=== PATIENT | female | born 1930 | race Caucasian/White ===

== ENCOUNTER 2019-07-18 04:17 | Observation (INO) | payer MEDICARE, BC ==
[~2019-07-18] VITALS: Ht 157.5 cm; Wt 69.0 kg
[~2019-07-18 04:17] MED LIST: ATOR40TA PO; BETA1TAB20 PO; CLOP75TA15 PO; COU5T PO; DILTIAZEM PO; DOCU-28 PO; FURO40TA4 PO; HYDR-3972 PO; LEVO100T PO; METOPROL PO; POTA20TA19 PO; SPIR25TA5 PO
[2019-07-18 04:40] LABS: BASOPHILS # (AUTO) 0.1 X10'3 (0-0.2); BASOPHILS % (AUTO) 1.4 % (0-1); EOSINOPHILS # (AUTO) 0.2 X10'3 (0-0.9); EOSINOPHILS % (AUTO) 1.8 % (0-6); HEMATOCRIT 37.9 % (35.0-45.0); HEMOGLOBIN 12.9 g/dl (12.0-16.0); LYMPHOCYTES # (AUTO) 1.6 X10'3 (1.1-4.8); LYMPHOCYTES % (AUTO) 17.9 % (21-51); MEAN CORPUSCULAR HEMOGLOBIN 31.1 PG (27.0-31.0); MEAN CORPUSCULAR VOLUME 91.3 FL (78-98); MEAN PLATELET VOLUME 7.7 FL (7.4-10.4); MONOCYTES # (AUTO) 0.8 X10'3 (0-0.9); MONOCYTES % (AUTO) 9.1 % (2-12); NEUTROPHILS # (AUTO) 6.3 X10'3 (1.8-7.7); NEUTROPHILS % (AUTO) 69.8 % (42-75); PLATELET COUNT 287 X10'3 (140-440); RED BLOOD COUNT 4.15 X10'6 (4.20-5.60); RED CELL DISTRIBUTION WIDTH 14.8 % (11.5-14.5)
[2019-07-18 04:56] LABS: ALANINE AMINOTRANSFERASE 34 U/L (12-78); ALBUMIN 3.6 G/DL (3.4-5.0); ALBUMIN/GLOBULIN RATIO 1.2 (1.1-1.5); ALKALINE PHOSPHATASE 102 IU/L (46-116); ANION GAP 8 (8-16); ASPARTATE AMINO TRANSFERASE 25 U/L (10-37); BILIRUBIN,TOTAL 0.5 MG/DL (0.1-1.0); BLOOD UREA NITROGEN 17 MG/DL (7-18); BUN/CREATININE RATIO 18.3 (6.6-38.0); CALCIUM 8.8 MG/DL (8.5-10.1); CHLORIDE 102 MMOL/L (99-107); CREATININE 0.93 MG/DL (0.40-0.90); GLUCOSE 113 MG/DL (70-104); POTASSIUM 3.7 MMOL/L (3.5-5.1); SODIUM 137 MMOL/L (135-145); TOTAL PROTEIN 6.5 G/DL (6.4-8.2); eGFR 57 ML/MIN
[2019-07-18] MEDS ORDERED: nitroGLYCERIN 1gm ointment UD TP ONE (05:00)
[2019-07-18] MEDS ORDERED: fentaNYL/PF 50MCG/1 ML 2ML syringe IV ONE (05:30)
[2019-07-18] MEDS ORDERED: iohexol 350MG/ML 100ml bottle IV ONE (05:40)
[2019-07-18] MEDS ORDERED: METO-395 PO (05:47)
[2019-07-18] MEDS ORDERED: FURO40TA4 PO (05:47)
[2019-07-18] MEDS ORDERED: POTA20TA19 PO (05:47)
[2019-07-18] MEDS ORDERED: ATOR-2 PO (05:47)
[2019-07-18] MEDS ORDERED: DILT240C92 PO (05:47)
[2019-07-18] MEDS ORDERED: VIT1CAPS46 PO (05:47)
[2019-07-18] MEDS ORDERED: WARF2.5T82 PO (05:47)
[2019-07-18] MEDS ORDERED: LEVO137T2 PO (05:47)
--- NOTE | 2019-07-18 05:50 | NUR ---
Pt. transported by tech to CT scan at this time.
--- NOTE | 2019-07-18 06:01 | NUR ---
Pt. returns to ED room 16 at this time.
[2019-07-18] MEDS ORDERED: potassium Cl 20 mEq SR tablet PO PRN ×2 (06:40)
[2019-07-18] MEDS ORDERED: magnesium 2GM in 50ml NS 50 ML IV PRN (06:40)
[2019-07-18] MEDS ORDERED: magnesium Cl slow-release 64mg tablet PO PRN (06:40)
[2019-07-18] MEDS ORDERED: magnesium 4gm in 100ml NS 100 ML IV PRN (06:40)
[2019-07-18] MEDS ORDERED: potassium CL 10mEq/100ml bag 100 ML IV PRN ×2 (06:40)
[2019-07-18] MEDS ORDERED: HYDROcodone/acetaminophen 5mg/325mg tablet PO PRN (06:40)
[2019-07-18] MEDS ORDERED: ondansetron/PF 4mg/2ml inj IV PRN (06:40)
[2019-07-18] MEDS: K and/or MAG REPLACEMENT MC SCH ×2 (08:00→20:00)
[2019-07-18] MEDS ORDERED: LIDO700A47 TOP (08:15)
[2019-07-18] MEDS ORDERED: ALEN70TA13 PO (08:15)
[2019-07-18] MEDS: morphine 2 MG/ML inj. syringe IV PRN ×3 (09:36→21:49)
--- NOTE | 2019-07-18 10:03 | NUR ---
PAGER ID: [phone] MESSAGE: [phone][facility] Columb[facility] 1979
[2019-07-18] MEDS: HYDROcodone/acetaminophen 10/325mg tab PO PRN ×3 (10:30→19:25)
[2019-07-18 10:55] LABS: MAGNESIUM 1.8 MG/DL (1.5-2.4)
[2019-07-18 11:00] VITALS: BP 129/73
[2019-07-18] MEDS ORDERED: non-formulary drug (Alendronate Sodium 1 TAB) PO SCH (11:25)
[2019-07-18] MEDS ORDERED: diltiazem CD 120mg capsule (once-daily) PO ONE (11:25)
[2019-07-18] MEDS: metoprolol succinate 25mg (24-HOUR) SR. Tablet PO SCH (13:46)
--- NOTE | 2019-07-18 14:43 | NUR ---
received report from Glendy PICKARD.
--- NOTE | 2019-07-18 15:00 | NUR ---
Problems reprioritized. Patient report given, questions answered & plan of care reviewed with Med/aircraft systems repairer.
[2019-07-18 18:45] VITALS: BP 113/70
--- NOTE | 2019-07-18 18:48 | NUR ---
Problems reprioritized. Patient report given, questions answered & plan of care reviewed with Noam PICKARD.
[2019-07-18] MEDS ORDERED: non-formulary drug (Vit C/E/Zn/Coppr/Lutein/Zeaxan (Preservision Areds 2 Softgel) 1 CAP) PO SCH (20:00)
[2019-07-18] MEDS ORDERED: warfarin 2.5mg tablet PO SCH (21:00)
[2019-07-19] VITALS: BP 137/64
[2019-07-19] MEDS: morphine 2 MG/ML inj. syringe IV PRN ×2 (03:27→11:37)
[2019-07-19 05:44] LABS: ALBUMIN 3.4 G/DL (3.4-5.0); ANION GAP 10 (8-16); BLOOD UREA NITROGEN 16 MG/DL (7-18); BUN/CREATININE RATIO 20.8 (6.6-38.0); CALCIUM 8.9 MG/DL (8.5-10.1); CHLORIDE 101 MMOL/L (99-107); CREATININE 0.77 MG/DL (0.40-0.90); GLUCOSE 117 MG/DL (70-104); MAGNESIUM 1.8 MG/DL (1.5-2.4); POTASSIUM 3.5 MMOL/L (3.5-5.1); SODIUM 137 MMOL/L (135-145); TOTAL CARBON DIOXIDE 26.1 MMOL/L (24-32); eGFR 71 ML/MIN
[2019-07-19 06:07] LABS: BASOPHILS # (AUTO) 0.1 X10'3 (0-0.2); BASOPHILS % (AUTO) 0.5 % (0-1); EOSINOPHILS # (AUTO) 0.1 X10'3 (0-0.9); HEMATOCRIT 38.5 % (35.0-45.0); LYMPHOCYTES # (AUTO) 0.9 X10'3 (1.1-4.8); LYMPHOCYTES % (AUTO) 8.5 % (21-51); MEAN CORPUSCULAR HEMOGLOBIN 31.1 PG (27.0-31.0); MEAN CORPUSCULAR HGB CONC 33.8 g/dL (33.0-36.5); MEAN CORPUSCULAR VOLUME 92.1 FL (78-98); MEAN PLATELET VOLUME 8.1 FL (7.4-10.4); MONOCYTES # (AUTO) 1.2 X10'3 (0-0.9); MONOCYTES % (AUTO) 11.5 % (2-12); NEUTROPHILS % (AUTO) 78.5 % (42-75); PLATELET COUNT 266 X10'3 (140-440); RED BLOOD COUNT 4.18 X10'6 (4.20-5.60); RED CELL DISTRIBUTION WIDTH 15.2 % (11.5-14.5); WHITE BLOOD COUNT 10.2 X10'3 (4.5-11.0)
--- NOTE | 2019-07-19 06:41 | NUR ---
Report given to NEERAJ Caldwell
--- NOTE | 2019-07-19 06:54 | NUR ---
Patient in room JASON 348. I have received report from NEERAJ Santacruz and had the opportunity to ask questions and assume patient care.
[2019-07-19 07:00] VITALS: BP 137/52
[2019-07-19] MEDS ORDERED: levoTHYROXINE 112mcg tablet PO SCH (07:00)
[2019-07-19] MEDS ORDERED: levoTHYROXINE 25mcg tablet PO SCH (07:00)
[2019-07-19] MEDS ORDERED: diltiazem CD 120mg capsule (once-daily) PO SCH (08:00)
[2019-07-19] MEDS ORDERED: atorvastatin 20mg tablet PO SCH (08:00)
[2019-07-19] MEDS ORDERED: furosemide 40mg tablet PO SCH (08:00)
[2019-07-19] MEDS ORDERED: potassium Cl 20 mEq SR tablet PO SCH (08:00)
[2019-07-19] MEDS: K and/or MAG REPLACEMENT MC SCH (08:00)
[2019-07-19] MEDS: metoprolol succinate 25mg (24-HOUR) SR. Tablet PO SCH (08:58)
[2019-07-19] MEDS: HYDROcodone/acetaminophen 10/325mg tab PO PRN ×2 (08:59→14:22)
[2019-07-19] MEDS ORDERED: FLU VACC QS 2019-20 (6 MOS UP) 60 MCG/0.5 ML VIAL IMVAC ONE (10:00)
[2019-07-19] MEDS ORDERED: pneumococcal 23-VAL P-sac vacc 25 mcg/0.5ml vial IMVAC ONE (10:00)
[2019-07-19 11:00] VITALS: BP 142/64
[2019-07-19] MEDS ORDERED: HYDR-4353 PO (14:32)
--- NOTE | 2019-07-19 17:02 | NUR ---
TIED SEVERAL TIMES TO SCAN VACCINE TO ADMIN TO PATIENT. IT WOULD NOT SCAN. PT DID NOT WANT TO WAIT FOR PHARMACY TO TRY TO FIX IT. THEY DECIDED TO REFUSE THE VACCINE. Addendum: 07/19/19 at 1704 by Traci Smiley RN TRIED NOT TIED.
== END 2019-07-19 17:04 | disposition home health service (06) ==
LOC: ER 04:18 → ED HOLD 08:41 → MED 3N 09:05 → SUR 3N 14:50
PROVIDERS: ADMIT Family Medicine; ATTEND Family Medicine
DX: R07.89 Other chest pain (principal); M79.602 Pain in left arm; I11.0 Hypertensive heart disease with heart failure; I50.9 Heart failure, unspecified; I48.91 Unspecified atrial fibrillation; E11.9 Type 2 diabetes mellitus without complications; M81.0 Age-related osteoporosis without current pathological fracture; E03.9 Hypothyroidism, unspecified; I25.10 Atherosclerotic heart disease of native coronary artery without angina pectoris; E78.5 Hyperlipidemia, unspecified; G89.29 Other chronic pain; M54.9 Dorsalgia, unspecified; Z95.0 Presence of cardiac pacemaker; Z95.5 Presence of coronary angioplasty implant and graft; Z90.49 Acquired absence of other specified parts of digestive tract; Z90.710 Acquired absence of both cervix and uterus; Z98.41 Cataract extraction status, right eye; Z98.42 Cataract extraction status, left eye; Z90.89 Acquired absence of other organs; Z79.01 Long term (current) use of anticoagulants; Z79.02 Long term (current) use of antithrombotics/antiplatelets; Z79.899 Other long term (current) drug therapy
CPT/HCPCS: 36415; 71045; 71275; 80048; 80053; 83735; 83880; 84484; 85025; 85610; 87081; 90732; 93005; 93306; 96374; 96375; 96376; 97112; 97116; 97161; 97530; 99284; G0378; J2270; J3010; Q9967; Q2037

== ENCOUNTER 2021-09-30 12:19 | Inpatient (IN) | payer MEDICARE, BC ==
[~2021-09-30] VITALS: Ht 152.4 cm; Wt 54.0 kg
[~2021-09-30 12:19] MED LIST changes: +ALEN70TA80 PO; +ATOR-2 PO; -ATOR40TA PO; -BETA1TAB20 PO; -CLOP75TA15 PO; -COU5T PO; +DILT240C92 PO; -DILTIAZEM PO; -DOCU-28 PO; -HYDR-3972 PO; -LEVO100T PO; +LEVO137T2 PO; +LIDO700A47 TOP; +METO-395 PO; -METOPROL PO; +POTA-207 PO; -POTA20TA19 PO; -SPIR25TA5 PO; +VIT1CAPS46 PO; +WARF2.5T82 PO
[2021-09-30 12:43] LABS: BASOPHILS % (AUTO) 0.7 % (0-1); EOSINOPHILS % (AUTO) 0 % (0-6); HEMOGLOBIN 13.9 g/dl (12.0-16.0); LYMPHOCYTES # (AUTO) 0.6 X10'3 (1.1-4.8); LYMPHOCYTES % (AUTO) 8.3 % (21-51); MEAN CORPUSCULAR HEMOGLOBIN 28.8 PG (27.0-31.0); MEAN CORPUSCULAR HGB CONC 32.4 g/dL (33.0-36.5); MEAN CORPUSCULAR VOLUME 88.9 FL (78-98); MEAN PLATELET VOLUME 8.3 FL (7.4-10.4); MONOCYTES # (AUTO) 0.7 X10'3 (0-0.9); MONOCYTES % (AUTO) 9.6 % (2-12); NEUTROPHILS % (AUTO) 81.4 % (42-75); PLATELET COUNT 312 X10'3 (140-440); RED BLOOD COUNT 4.84 X10'6 (4.20-5.60); RED CELL DISTRIBUTION WIDTH 14.9 % (11.5-14.5); WHITE BLOOD COUNT 7.4 X10'3 (4.5-11.0)
[2021-09-30 13:00] LABS: ALANINE AMINOTRANSFERASE 55 U/L (12-78); ALBUMIN/GLOBULIN RATIO 1.2 (1.1-1.5); ALKALINE PHOSPHATASE 121 IU/L (46-116); ANION GAP 15 (8-16); ASPARTATE AMINO TRANSFERASE 60 U/L (10-37); BILIRUBIN,TOTAL 1.1 MG/DL (0.1-1.0); BLOOD UREA NITROGEN 40 MG/DL (7-18); BUN/CREATININE RATIO 34.2 (6.6-38.0); CHLORIDE 101 MMOL/L (99-107); CREATININE 1.17 MG/DL (0.40-0.90); GLUCOSE 132 MG/DL (70-104); SODIUM 135 MMOL/L (135-145); TOTAL PROTEIN 7.4 G/DL (6.4-8.2); eGFR 44 ML/MIN
--- NOTE | 2021-09-30 13:22 | NUR ---
patient difficult to obtain saturation due to cool fingertips.started pt on a non rebreather 15L,paged RT. purple earlobes, aware.
--- NOTE | 2021-09-30 13:26 | NUR ---
rt at bedside.
[2021-09-30 13:37] LABS: ABG BASE EXCESS -5.8 mmol/L (-2.0-2.0); ABG OXYGEN SATURATION 99.8 % (94-97); ABG PCO2 (T) 22.4 mmHg (32.0-45.0); ALLEN'S TEST POSITIVE; FLOW 20 L/min; FMetHb 0.2 % (0.0-1.5); FO2Hb 98.6 % (94-97); PATIENT TEMPERATURE 36.2; TOTAL HEMOGLOBIN 14.4 G/dl (12.0-16.0)
[2021-09-30] MEDS ORDERED: aspirin 325mg tablet PO ONE (14:15)
[2021-09-30] MEDS ORDERED: diltiazem 5mg/ml 5ml inj. IV ONE (14:15)
[2021-09-30] MEDS ORDERED: ondansetron/PF 4mg/2ml inj IV ONE (14:15)
[2021-09-30] MEDS ORDERED: mag hydrox/Alum hydrox/simeth 30ml oral suspension PO PRN (14:25)
[2021-09-30] MEDS ORDERED: magnesium hydroxide 30ml (MOM) UD suspension PO PRN (14:25)
[2021-09-30] MEDS ORDERED: acetaminophen 325mg tablet PO PRN (14:25)
[2021-09-30] MEDS ORDERED: magnesium 2GM in 50ml NS 50 ML IV PRN (14:25)
[2021-09-30] MEDS ORDERED: morphine 2 MG/ML inj. syringe IV PRN ×2 (14:25)
[2021-09-30] MEDS ORDERED: potassium Cl 20 mEq SR tablet PO PRN (14:25)
[2021-09-30] MEDS ORDERED: magnesium 4gm in 100ml NS 100 ML IV PRN (14:25)
[2021-09-30] MEDS ORDERED: potassium CL 10mEq/100ml bag 100 ML IV PRN (14:25)
[2021-09-30] MEDS ORDERED: ondansetron/PF 4mg/2ml inj IV PRN (14:25)
[2021-09-30] MEDS ORDERED: magnesium Cl slow-release 64mg tablet PO PRN (14:25)
[2021-09-30] MEDS ORDERED: albuterol 2.5 MG/3 ML nebule CONTNEB PRN (15:00)
[2021-09-30] MEDS ORDERED: dextrose 50%-water 50ml dispensing syringe IV ONE (15:00)
[2021-09-30] MEDS ORDERED: albuterol 2.5 MG/3 ML nebule NEB ONE (15:00)
[2021-09-30] MEDS ORDERED: sodium polystyrene sulfonate 15gm/60ml oral suspension PO ONE (15:00)
[2021-09-30] MEDS ORDERED: insulin regular, human U-100 3ml vial - multi-dose IV ONE (15:00)
--- NOTE | 2021-09-30 15:00 | NUR ---
dr. shayy melara aware about patient's k 6.0
[2021-09-30] MEDS ORDERED: FLUT1BLS4 INH (15:10)
[2021-09-30] MEDS ORDERED: HYDR-3973 PO (15:10)
[2021-09-30] MEDS ORDERED: ALBU2.5V10 NEB (15:10)
[2021-09-30] MEDS ORDERED: ALBU17AE26 PO (15:10)
[2021-09-30] MEDS ORDERED: EZET10TA48 PO (15:10)
[2021-09-30 15:17] LABS: MAGNESIUM 2.2 MG/DL (1.5-2.4)
[2021-09-30 15:33] LABS: HEMOGLOBIN A1C 6.2 % (4.5-6.2)
[2021-09-30 17:35] VITALS: BP 120/76
[2021-09-30 18:00] VITALS: BP 155/91
[2021-09-30] MEDS: K and/or MAG REPLACEMENT MC SCH (20:00)
[2021-09-30] MEDS: docusate sod 100mg capsule PO SCH (20:52)
[2021-09-30] MEDS: HYDROcodone/acetaminophen 5mg/325mg tablet PO PRN (20:52)
[2021-09-30] MEDS: atorvastatin 20mg tablet PO SCH (20:56)
--- NOTE | 2021-09-30 21:12 | NUR ---
PAGER ID: [phone] MESSAGE: Mady arteagas : Katherine Metz in 4827h heart rate in 150 Cardizem iv 5mg/ml given 6hours ago in ER
--- NOTE | 2021-09-30 21:30 | NUR ---
New order for Cardizem drip for heart rate of 145 , running at 2.5ml/hour
[2021-09-30 22:00] VITALS: BP 130/71
[2021-09-30] MEDS: diltiazem-NS 100mg/100ml 100 ML IV SCH (22:09)
[2021-10-01 02:00] VITALS: BP 126/69
[2021-10-01 06:00] VITALS: BP 138/75
--- NOTE | 2021-10-01 06:15 | NUR ---
Problems reprioritized. Patient report given, questions answered & plan of care reviewed with Lisandra PICKARD .
[2021-10-01 07:06] LABS: BASOPHILS # (AUTO) 0.1 X10'3 (0-0.2); BASOPHILS % (AUTO) 0.7 % (0-1); EOSINOPHILS % (AUTO) 0.2 % (0-6); HEMATOCRIT 36.9 % (35.0-45.0); HEMOGLOBIN 12.2 g/dl (12.0-16.0); LYMPHOCYTES % (AUTO) 11.4 % (21-51); MEAN CORPUSCULAR HEMOGLOBIN 28.8 PG (27.0-31.0); MEAN CORPUSCULAR VOLUME 87.4 FL (78-98); MEAN PLATELET VOLUME 8.4 FL (7.4-10.4); MONOCYTES % (AUTO) 11.9 % (2-12); NEUTROPHILS # (AUTO) 6.5 X10'3 (1.8-7.7); NEUTROPHILS % (AUTO) 75.8 % (42-75); PLATELET COUNT 294 X10'3 (140-440); RED BLOOD COUNT 4.22 X10'6 (4.20-5.60); WHITE BLOOD COUNT 8.5 X10'3 (4.5-11.0)
[2021-10-01 07:22] LABS: ALANINE AMINOTRANSFERASE 50 U/L (12-78); ALBUMIN 3.5 G/DL (3.4-5.0); ALBUMIN/GLOBULIN RATIO 1.3 (1.1-1.5); ALKALINE PHOSPHATASE 100 IU/L (46-116); ANION GAP 12 (8-16); ASPARTATE AMINO TRANSFERASE 49 U/L (10-37); BILIRUBIN,TOTAL 1.2 MG/DL (0.1-1.0); BLOOD UREA NITROGEN 44 MG/DL (7-18); BUN/CREATININE RATIO 37.3 (6.6-38.0); CALCIUM 9.3 MG/DL (8.5-10.1); CHLORIDE 99 MMOL/L (99-107); CHOL/HDL RATIO 2.3 (0.00-4.99); CHOLESTEROL 122 MG/DL (0-200); CREATININE 1.18 MG/DL (0.40-0.90); GLUCOSE 96 MG/DL (70-104); HDL CHOLESTEROL 53 MG/DL (35-60); LDL CHOLESTEROL 60 MG/DL (50-100); MAGNESIUM 2.2 MG/DL (1.5-2.4); POTASSIUM 4.6 MMOL/L (3.5-5.1); SODIUM 132 MMOL/L (135-145); TOTAL CARBON DIOXIDE 20.8 MMOL/L (24-32); TOTAL PROTEIN 6.3 G/DL (6.4-8.2); TRIGLYCERIDES 65 MG/DL (20-135); eGFR 43 ML/MIN
--- NOTE | 2021-10-01 07:36 | NUR ---
CRITICAL LAB VALUE RECEIVED, MESSAGE TO Andrea BATISTA. PATIENT IN ROOM 3026 B PHILIP BARR PT/INR 52.8/5.7 LAST ONE 09/30 WAS 41.8/4.4. AWAITING ASSOCIATE PROFESSOR OF LITERATURE BACK.
[2021-10-01] MEDS ORDERED: diltiazem CD 120mg capsule (once-daily) PO SCH (08:00)
[2021-10-01] MEDS: K and/or MAG REPLACEMENT MC SCH ×2 (08:00→20:00)
[2021-10-01] MEDS: atorvastatin 20mg tablet PO SCH (08:50)
[2021-10-01] MEDS: metoprolol succinate 25mg (24-HOUR) SR. Tablet PO SCH (08:51)
[2021-10-01] MEDS: furosemide 40mg/4ml inj IV SCH (08:51)
[2021-10-01] MEDS: levoTHYROXINE 25mcg tablet PO SCH (08:51)
[2021-10-01] MEDS: levoTHYROXINE 112mcg tablet PO SCH (08:51)
[2021-10-01] MEDS: docusate sod 100mg capsule PO SCH ×2 (08:52→20:52)
[2021-10-01 11:00] VITALS: BP 142/91
--- NOTE | 2021-10-01 11:04 | NUR ---
Age screen: Per malnutrition risk screen with RN pt denies wt loss or decreased appetite. Pending documentation of PO intake on heart healthy diet. Recommend liberalizing to regular diet in view of geriatric age, lipid panel WNL, and low serum Na (132 MMOL/L). Current wt is appropriate for age though not scaled. Pt with no documented edema or wounds. Will continue to follow and make recommendations as appropriate pending trends in PO intake. Addendum: 10/01/21 at [address] Amended: Links added.
[2021-10-01 15:00] VITALS: BP 122/74
[2021-10-01 18:00] VITALS: BP 115/62
[2021-10-01] MEDS ORDERED: PERFLUTREN PROTEIN-A MICROSPHR (Optison) 0.22 MG/ML 3ML VIAL IV PRN (20:30)
[2021-10-01] MEDS: HYDROcodone/acetaminophen 5mg/325mg tablet PO PRN (20:52)
[2021-10-01 22:00] VITALS: BP 142/88
[2021-10-02 02:00] VITALS: BP 140/80
[2021-10-02] MEDS: diltiazem-NS 100mg/100ml 100 ML IV SCH (03:28)
[2021-10-02 06:00] VITALS: BP 163/97
[2021-10-02 06:24] LABS: BASOPHILS # (AUTO) 0.1 X10'3 (0-0.2); BASOPHILS % (AUTO) 0.7 % (0-1); EOSINOPHILS # (AUTO) 0.1 X10'3 (0-0.9); EOSINOPHILS % (AUTO) 0.8 % (0-6); HEMATOCRIT 35.2 % (35.0-45.0); HEMOGLOBIN 11.7 g/dl (12.0-16.0); LYMPHOCYTES # (AUTO) 0.9 X10'3 (1.1-4.8); LYMPHOCYTES % (AUTO) 9.6 % (21-51); MEAN CORPUSCULAR HEMOGLOBIN 28.7 PG (27.0-31.0); MEAN CORPUSCULAR HGB CONC 33.2 g/dL (33.0-36.5); MEAN CORPUSCULAR VOLUME 86.5 FL (78-98); MEAN PLATELET VOLUME 8.1 FL (7.4-10.4); MONOCYTES # (AUTO) 1.1 X10'3 (0-0.9); MONOCYTES % (AUTO) 12.2 % (2-12); NEUTROPHILS % (AUTO) 76.7 % (42-75); PLATELET COUNT 258 X10'3 (140-440); RED BLOOD COUNT 4.06 X10'6 (4.20-5.60); RED CELL DISTRIBUTION WIDTH 14.8 % (11.5-14.5); WHITE BLOOD COUNT 9.1 X10'3 (4.5-11.0)
--- NOTE | 2021-10-02 06:44 | NUR ---
Problems reprioritized. Patient report given, questions answered & plan of care reviewed with Krunal Go .
[2021-10-02] MEDS: K and/or MAG REPLACEMENT MC SCH ×2 (08:00→20:00)
[2021-10-02] MEDS: docusate sod 100mg capsule PO SCH ×2 (08:00→20:06)
[2021-10-02 08:04] LABS: ALANINE AMINOTRANSFERASE 44 U/L (12-78); ALBUMIN 3.2 G/DL (3.4-5.0); ALBUMIN/GLOBULIN RATIO 1.1 (1.1-1.5); ALKALINE PHOSPHATASE 94 IU/L (46-116); ASPARTATE AMINO TRANSFERASE 37 U/L (10-37); BILIRUBIN,TOTAL 0.9 MG/DL (0.1-1.0); BLOOD UREA NITROGEN 40 MG/DL (7-18); BUN/CREATININE RATIO 41.7 (6.6-38.0); CALCIUM 8.9 MG/DL (8.5-10.1); CREATININE 0.96 MG/DL (0.40-0.90); GLUCOSE 102 MG/DL (70-104); MAGNESIUM 2.2 MG/DL (1.5-2.4); TOTAL CARBON DIOXIDE 23.9 MMOL/L (24-32); TOTAL PROTEIN 6.1 G/DL (6.4-8.2); eGFR 55 ML/MIN
[2021-10-02] MEDS: levoTHYROXINE 25mcg tablet PO SCH (08:42)
[2021-10-02] MEDS: levoTHYROXINE 112mcg tablet PO SCH (08:44)
[2021-10-02] MEDS: atorvastatin 20mg tablet PO SCH (08:44)
[2021-10-02] MEDS: furosemide 40mg/4ml inj IV SCH (08:45)
[2021-10-02] MEDS: metoprolol succinate 25mg (24-HOUR) SR. Tablet PO SCH (08:45)
[2021-10-02 11:00] VITALS: BP 119/81
[2021-10-02 13:21] LABS: POTASSIUM 3.6 MMOL/L (3.3-5.1)
[2021-10-02 15:00] VITALS: BP 128/84
[2021-10-02] MEDS: HYDROcodone/acetaminophen 5mg/325mg tablet PO PRN ×2 (15:30→20:06)
[2021-10-02 18:00] VITALS: BP 121/71
[2021-10-02 22:00] VITALS: BP 111/62
[2021-10-03 02:00] VITALS: BP 120/71
[2021-10-03 06:00] VITALS: BP 119/63
[2021-10-03 06:29] LABS: BASOPHILS % (AUTO) 0.4 % (0-1); EOSINOPHILS # (AUTO) 0.1 X10'3 (0-0.9); EOSINOPHILS % (AUTO) 1.4 % (0-6); HEMATOCRIT 36.7 % (35.0-45.0); HEMOGLOBIN 11.8 g/dl (12.0-16.0); LYMPHOCYTES # (AUTO) 0.9 X10'3 (1.1-4.8); LYMPHOCYTES % (AUTO) 8.9 % (21-51); MEAN CORPUSCULAR VOLUME 87.4 FL (78-98); MEAN PLATELET VOLUME 8.3 FL (7.4-10.4); MONOCYTES # (AUTO) 1.1 X10'3 (0-0.9); MONOCYTES % (AUTO) 11.3 % (2-12); NEUTROPHILS # (AUTO) 7.8 X10'3 (1.8-7.7); PLATELET COUNT 275 X10'3 (140-440); RED CELL DISTRIBUTION WIDTH 15.1 % (11.5-14.5); WHITE BLOOD COUNT 9.9 X10'3 (4.5-11.0)
--- NOTE | 2021-10-03 06:30 | NUR ---
Problems reprioritized. Patient report given, questions answered & plan of care reviewed with Krunal PICKARD .
[2021-10-03 06:39] LABS: ALANINE AMINOTRANSFERASE 40 U/L (12-78); ALBUMIN 3.1 G/DL (3.4-5.0); ALBUMIN/GLOBULIN RATIO 1.1 (1.1-1.5); ALKALINE PHOSPHATASE 101 IU/L (46-116); ANION GAP 8 (8-16); ASPARTATE AMINO TRANSFERASE 31 U/L (10-37); BILIRUBIN,TOTAL 0.9 MG/DL (0.1-1.0); BLOOD UREA NITROGEN 29 MG/DL (7-18); BUN/CREATININE RATIO 34.9 (6.6-38.0); CALCIUM 8.7 MG/DL (8.5-10.1); CHLORIDE 99 MMOL/L (99-107); CREATININE 0.83 MG/DL (0.40-0.90); GLUCOSE 98 MG/DL (70-104); SODIUM 136 MMOL/L (135-145); TOTAL PROTEIN 5.9 G/DL (6.4-8.2); eGFR 65 ML/MIN
[2021-10-03] MEDS: metoprolol succinate 25mg (24-HOUR) SR. Tablet PO SCH (07:07)
[2021-10-03] MEDS: levoTHYROXINE 112mcg tablet PO SCH (07:07)
[2021-10-03] MEDS: levoTHYROXINE 25mcg tablet PO SCH (07:07)
[2021-10-03] MEDS: atorvastatin 20mg tablet PO SCH (07:08)
[2021-10-03] MEDS: furosemide 40mg/4ml inj IV SCH (07:08)
[2021-10-03] MEDS: docusate sod 100mg capsule PO SCH ×2 (07:08→20:51)
[2021-10-03 07:46] LABS: POTASSIUM 2.8 MMOL/L (3.5-5.1)
[2021-10-03] MEDS: potassium Cl 20 mEq SR tablet PO PRN ×2 (08:34→13:20)
[2021-10-03 11:00] VITALS: BP 131/92
[2021-10-03] MEDS ORDERED: metoprolol succinate 25mg (24-HOUR) SR. Tablet PO ONE (13:10)
[2021-10-03 15:00] VITALS: BP 111/80
[2021-10-03] MEDS: HYDROcodone/acetaminophen 5mg/325mg tablet PO PRN ×2 (17:11→20:55)
[2021-10-03] MEDS ORDERED: magnesium 4gm in 100ml NS 100 ML IV PRN (17:15)
[2021-10-03] MEDS ORDERED: potassium CL 10mEq/100ml bag 100 ML IV PRN (17:15)
[2021-10-03] MEDS ORDERED: magnesium Cl slow-release 64mg tablet PO PRN (17:15)
[2021-10-03] MEDS ORDERED: potassium Cl 20 mEq SR tablet PO PRN ×2 (17:15)
[2021-10-03 18:00] VITALS: BP 125/73
[2021-10-03] MEDS: K and/or MAG REPLACEMENT MC SCH (20:00)
[2021-10-03] MEDS ORDERED: warfarin 1mg tablet PO ONE (21:00)
[2021-10-03 22:00] VITALS: BP 112/65
[2021-10-04] MEDS: HYDROcodone/acetaminophen 5mg/325mg tablet PO PRN ×3 (00:54→19:42)
[2021-10-04] MEDS ORDERED: digoxin 250mcg/ml 2ml ampule IV ONE (01:30)
[2021-10-04 02:00] VITALS: BP 131/81
--- NOTE | 2021-10-04 02:55 | NUR ---
Pts HR 130- 150's, MD Stone notified, received order for digoxin. Pt Hr is now 112-118 WCTM
[2021-10-04 06:00] VITALS: BP 132/81
[2021-10-04 06:19] LABS: BASOPHILS # (AUTO) 0.1 X10'3 (0-0.2); BASOPHILS % (AUTO) 0.7 % (0-1); EOSINOPHILS # (AUTO) 0.1 X10'3 (0-0.9); EOSINOPHILS % (AUTO) 1.3 % (0-6); HEMATOCRIT 38.4 % (35.0-45.0); HEMOGLOBIN 12.6 g/dl (12.0-16.0); LYMPHOCYTES # (AUTO) 0.9 X10'3 (1.1-4.8); LYMPHOCYTES % (AUTO) 10.4 % (21-51); MEAN CORPUSCULAR HEMOGLOBIN 28.6 PG (27.0-31.0); MEAN CORPUSCULAR HGB CONC 32.7 g/dL (33.0-36.5); MEAN CORPUSCULAR VOLUME 87.3 FL (78-98); MEAN PLATELET VOLUME 8.3 FL (7.4-10.4); MONOCYTES # (AUTO) 1.1 X10'3 (0-0.9); MONOCYTES % (AUTO) 12.5 % (2-12); NEUTROPHILS # (AUTO) 6.5 X10'3 (1.8-7.7); NEUTROPHILS % (AUTO) 75.1 % (42-75); PLATELET COUNT 287 X10'3 (140-440); RED CELL DISTRIBUTION WIDTH 14.8 % (11.5-14.5); WHITE BLOOD COUNT 8.7 X10'3 (4.5-11.0)
[2021-10-04 06:39] LABS: ALANINE AMINOTRANSFERASE 41 U/L (12-78); ALBUMIN 3.2 G/DL (3.4-5.0); ALKALINE PHOSPHATASE 113 IU/L (46-116); ANION GAP 10 (8-16); ASPARTATE AMINO TRANSFERASE 32 U/L (10-37); BLOOD UREA NITROGEN 29 MG/DL (7-18); BUN/CREATININE RATIO 27.9 (6.6-38.0); CALCIUM 8.4 MG/DL (8.5-10.1); CHLORIDE 99 MMOL/L (99-107); CREATININE 1.04 MG/DL (0.40-0.90); GLUCOSE 102 MG/DL (70-104); SODIUM 135 MMOL/L (135-145); TOTAL CARBON DIOXIDE 25.6 MMOL/L (24-32); TOTAL PROTEIN 6.4 G/DL (6.4-8.2); eGFR 50 ML/MIN
[2021-10-04] MEDS: levoTHYROXINE 25mcg tablet PO SCH (07:55)
[2021-10-04] MEDS: levoTHYROXINE 112mcg tablet PO SCH (07:55)
[2021-10-04] MEDS: docusate sod 100mg capsule PO SCH ×2 (07:56→19:42)
[2021-10-04] MEDS: atorvastatin 20mg tablet PO SCH (07:57)
[2021-10-04] MEDS: metoprolol succinate 25mg (24-HOUR) SR. Tablet PO SCH (07:57)
[2021-10-04] MEDS: furosemide 40mg/4ml inj IV SCH (07:57)
[2021-10-04] MEDS: K and/or MAG REPLACEMENT MC SCH ×2 (08:00→19:51)
[2021-10-04 11:00] VITALS: BP 130/66
--- NOTE | 2021-10-04 14:39 | NUR ---
Initial: Pt admitted w/ SOB and weakness, systolic heart failure, cardiomyopathy, A.Fib, CAD, and COPD per EMR. Pt is currently on 4.0L HFNC per EMR. Pt is on a Heart Healthy diet, w/ avg PO meals 56% and is currently meeting estimated nutrient needs. Recommend Regular diet given geriatric age and lipid panel. [facility] 10/04, receiving routine Colace per EMR. No nutrition intervention implemented at this time. Will continue to monitor. Recommendations: 1. Liberalize to Regular diet given geriatric age and lipid panel 2. Routine bowel care 3. Scaled wt this admit, weekly scaled wts thereafter Addendum: 10/04/21 at [address] Amended: Links added. Addendum: 10/04/21 at [address] I have reviewed assessment by logistics intern
[2021-10-04 15:00] VITALS: BP 124/67
--- NOTE | 2021-10-04 18:44 | NUR ---
Patient in room PCU 3026. I have received report from NEERAJ Hector and had the opportunity to ask questions and assume patient care.
--- NOTE | 2021-10-04 18:45 | NUR ---
Problems reprioritized. Patient report given, questions answered & plan of care reviewed with Krista/RN.
[2021-10-04 19:00] VITALS: BP 134/72
[2021-10-04] MEDS ORDERED: warfarin 1mg tablet PO ONE (21:00)
[2021-10-04 23:00] VITALS: BP 104/60
[2021-10-05 03:00] VITALS: BP 100/53
[2021-10-05 06:00] VITALS: BP 117/65
[2021-10-05 06:18] LABS: BASOPHILS # (AUTO) 0.1 X10'3 (0-0.2); BASOPHILS % (AUTO) 0.9 % (0-1); EOSINOPHILS # (AUTO) 0.3 X10'3 (0-0.9); EOSINOPHILS % (AUTO) 3.3 % (0-6); HEMATOCRIT 39.1 % (35.0-45.0); HEMOGLOBIN 12.9 g/dl (12.0-16.0); MEAN CORPUSCULAR HEMOGLOBIN 28.4 PG (27.0-31.0); MEAN CORPUSCULAR VOLUME 86.1 FL (78-98); MEAN PLATELET VOLUME 7.8 FL (7.4-10.4); MONOCYTES # (AUTO) 1.1 X10'3 (0-0.9); MONOCYTES % (AUTO) 12.8 % (2-12); NEUTROPHILS # (AUTO) 6.3 X10'3 (1.8-7.7); PLATELET COUNT 324 X10'3 (140-440); RED BLOOD COUNT 4.55 X10'6 (4.20-5.60); RED CELL DISTRIBUTION WIDTH 14.9 % (11.5-14.5); WHITE BLOOD COUNT 8.7 X10'3 (4.5-11.0)
--- NOTE | 2021-10-05 06:34 | NUR ---
Problems reprioritized. Patient report given, questions answered & plan of care reviewed with NEERAJ Hector.
[2021-10-05 06:37] LABS: ALANINE AMINOTRANSFERASE 38 U/L (12-78); ALKALINE PHOSPHATASE 113 IU/L (46-116); ANION GAP 9 (8-16); ASPARTATE AMINO TRANSFERASE 29 U/L (10-37); BILIRUBIN,TOTAL 0.9 MG/DL (0.1-1.0); BLOOD UREA NITROGEN 26 MG/DL (7-18); BUN/CREATININE RATIO 34.7 (6.6-38.0); CALCIUM 8.7 MG/DL (8.5-10.1); CHLORIDE 100 MMOL/L (99-107); CREATININE 0.75 MG/DL (0.40-0.90); GLUCOSE 100 MG/DL (70-104); POTASSIUM 3.7 MMOL/L (3.5-5.1); SODIUM 137 MMOL/L (135-145); TOTAL CARBON DIOXIDE 28.1 MMOL/L (24-32); eGFR 73 ML/MIN
[2021-10-05] MEDS: levoTHYROXINE 112mcg tablet PO SCH (07:50)
[2021-10-05] MEDS: levoTHYROXINE 25mcg tablet PO SCH (07:50)
[2021-10-05] MEDS: docusate sod 100mg capsule PO SCH (07:50)
[2021-10-05] MEDS: furosemide 40mg/4ml inj IV SCH (07:51)
[2021-10-05] MEDS: metoprolol succinate 25mg (24-HOUR) SR. Tablet PO SCH (07:51)
[2021-10-05] MEDS: atorvastatin 20mg tablet PO SCH (07:51)
[2021-10-05] MEDS: K and/or MAG REPLACEMENT MC SCH (08:00)
[2021-10-05] MEDS: HYDROcodone/acetaminophen 5mg/325mg tablet PO PRN (13:17)
--- NOTE | 2021-10-05 16:54 | NUR ---
Transferred to long-term facility, in stable condition, accompanied by 1 attendant. Report given to nurse Benavidez.
[2021-10-05] MEDS ORDERED: ATOR20TA66 PO (17:27)
[2021-10-05] MEDS ORDERED: warfarin 2.5mg tablet PO ONE (21:00)
== END 2021-10-05 16:40 | DRG 280 ==
LOC: ER 12:19 → ED HOLD 14:32 → EDBEDREQ 15:46 → PCU 3S 17:15
PROVIDERS: ADMIT Internal Medicine; ATTEND Internal Medicine
DX: I11.0 Hypertensive heart disease with heart failure (principal); I50.23 Acute on chronic systolic (congestive) heart failure; I21.A1 Myocardial infarction type 2; I48.20 Chronic atrial fibrillation, unspecified; J44.1 Chronic obstructive pulmonary disease with (acute) exacerbation; I42.9 Cardiomyopathy, unspecified; Z20.822 Contact with and (suspected) exposure to COVID-19; E03.9 Hypothyroidism, unspecified; E11.51 Type 2 diabetes mellitus with diabetic peripheral angiopathy without gangrene; E78.00 Pure hypercholesterolemia, unspecified; E78.5 Hyperlipidemia, unspecified; E87.5 Hyperkalemia; E87.6 Hypokalemia; F03.90 Unspecified dementia, unspecified severity, without behavioral disturbance, psychotic disturbance, mood disturbance, and anxiety; F41.0 Panic disorder [episodic paroxysmal anxiety]; I08.1 Rheumatic disorders of both mitral and tricuspid valves; I25.10 Atherosclerotic heart disease of native coronary artery without angina pectoris; G89.29 Other chronic pain; M19.90 Unspecified osteoarthritis, unspecified site; M54.9 Dorsalgia, unspecified; M81.0 Age-related osteoporosis without current pathological fracture; Z79.01 Long term (current) use of anticoagulants; Z79.890 Hormone replacement therapy; Z87.891 Personal history of nicotine dependence; Z90.710 Acquired absence of both cervix and uterus; Z95.0 Presence of cardiac pacemaker; Z95.5 Presence of coronary angioplasty implant and graft; Z99.81 Dependence on supplemental oxygen; Z90.49 Acquired absence of other specified parts of digestive tract; Z98.42 Cataract extraction status, left eye; Z98.41 Cataract extraction status, right eye; Z79.899 Other long term (current) drug therapy
CPT/HCPCS: 36415; 36600; 71045; 80053; 80061; 82803; 83036; 83605; 83735; 83880; 84145; 84443; 84484; 85018; 85025; 85379; 85610; 87040; 87635; 93005; 93306; 94640; 94760; 96374; 96375; 97116; 97161; 97530; 99285; A7015; C9803; G0378; J1160; J1815; J1940; J2405; J3490

== ENCOUNTER 2021-12-05 16:28 | Inpatient (IN) | payer MEDICARE, BC ==
[~2021-12-05] VITALS: Ht 152.4 cm; Wt 53.6 kg
[~2021-12-05 16:28] MED LIST changes: +ALBU17AE26 PO; +ALBU2.5V10 NEB; -ATOR-2 PO; +ATOR20TA66 PO; -DILT240C92 PO; +EZET10TA48 PO; +FLUT1BLS4 INH; +HYDR-3973 PO
[2021-12-05 18:17] LABS: MEAN PLATELET VOLUME 8.6 FL (7.4-10.4)
[2021-12-05 18:19] LABS: BASOPHILS % (AUTO) 0.1 % (0-1); EOSINOPHILS % (AUTO) 0 % (0-6); HEMATOCRIT 39.4 % (35.0-45.0); HEMOGLOBIN 12.6 g/dl (12.0-16.0); LYMPHOCYTES # (AUTO) 0.6 X10'3 (1.1-4.8); MEAN CORPUSCULAR HEMOGLOBIN 25.6 PG (27.0-31.0); MEAN CORPUSCULAR HGB CONC 32.1 g/dL (33.0-36.5); MEAN CORPUSCULAR VOLUME 79.7 FL (78-98); MONOCYTES # (AUTO) 1.3 X10'3 (0-0.9); MONOCYTES % (AUTO) 12.4 % (2-12); NEUTROPHILS # (AUTO) 8.5 X10'3 (1.8-7.7); NEUTROPHILS % (AUTO) 81.5 % (42-75); PLATELET COUNT 284 X10'3 (140-440); RED BLOOD COUNT 4.94 X10'6 (4.20-5.60); RED CELL DISTRIBUTION WIDTH 18.4 % (11.5-14.5); WHITE BLOOD COUNT 10.4 X10'3 (4.5-11.0)
[2021-12-05 18:33] LABS: APTT 41 SECONDS (22-32)
[2021-12-05 18:49] LABS: ALBUMIN 3.7 G/DL (3.4-5.0); ALBUMIN/GLOBULIN RATIO 1.2 (1.1-1.5); ALKALINE PHOSPHATASE 113 IU/L (46-116); ANION GAP 16 (8-16); BILIRUBIN,TOTAL 1.4 MG/DL (0.1-1.0); BLOOD UREA NITROGEN 78 MG/DL (7-18); CALCIUM 9.6 MG/DL (8.5-10.1); CHLORIDE 91 MMOL/L (99-107); CREATININE 1.95 MG/DL (0.40-0.90); GLUCOSE 101 MG/DL (70-104); LIPASE 213 U/L (73-393); POTASSIUM 4.2 MMOL/L (3.5-5.1); SODIUM 129 MMOL/L (135-145); TOTAL CARBON DIOXIDE 21.7 MMOL/L (24-32); TOTAL PROTEIN 6.8 G/DL (6.4-8.2); eGFR 24 ML/MIN
[2021-12-05 20:06] LABS: ASPARTATE AMINO TRANSFERASE 1550 U/L (10-37)
[2021-12-05 20:07] LABS: ALANINE AMINOTRANSFERASE 1558 U/L (12-78)
[2021-12-05 20:53] LABS: CLARITY,URINE CLEAR (Clear); COLOR,URINE YELLOW (Yellow); GLUCOSE, URINE NEGATIVE (Neg); KETONES,URINE NEGATIVE (Neg); LEUKOCYTE ESTERASE ,URINE NEGATIVE (Neg); NITRITES, URINE NEGATIVE (Neg); OCCULT BLOOD,URINE NEGATIVE (Neg); PH,URINE 5.5 (4.8-8.0); PROTEIN,URINE NEGATIVE (Neg); UROBILINOGEN,URINE 0.2 E.U/dL (0.2-1.0)
--- NOTE | 2021-12-05 21:00 | NUR ---
PT RESTING IN BED, DENIES ANY PAIN, WAITING TO BE SEEN BY PROVIDER. REPORT FROM NEERAJ MANRIQUE REGARDING PT STATES PT ON COMFORT CARE. PT FAMILY AT BEDSIDE. PT STATES FEELING ILL RECENTLY OVER PAST SEVERAL DAYS INCLUDING WEAKNESS WITH N/V/D, DENIES ABD PAIN. PT FAMILY STATES A RECENT DETERIORATION IN PT. PT STATES SHE COULD BE DEHYDRATED.
[2021-12-05 21:06] LABS: UA COLLECTION TYPE CLN CATCH MIDSTREAM
--- NOTE | 2021-12-05 21:45 | NUR ---
PT STATES PAIN GENERALIZED 7/10 WITH SOME NAUSEA. WILL DISCUSS WITH DR. BRUNER
--- NOTE | 2021-12-05 22:00 | NUR ---
NOTIFIED DR. BRUNER OF PTS. PAIN AND HR.
[2021-12-05] MEDS ORDERED: ondansetron 4mg rapidly disintigrating tab PO ONE (22:05)
[2021-12-05] MEDS ORDERED: HYDROcodone/acetaminophen 10/325mg tab PO ONE (22:05)
[2021-12-05] MEDS ORDERED: carVEDilol 3.125mg tablet PO SCH (23:10)
[2021-12-05 23:13] LABS: ACETAMINOPHEN < 2.0 UG/ML (10-30)
[2021-12-05] MEDS: metoprolol tartrate 1mg/ml inj IV SCH ×3 (23:25→23:55)
[2021-12-06] MEDS: metoprolol tartrate 1mg/ml inj IV SCH (00:10)
[2021-12-06] MEDS ORDERED: acetaminophen 325mg tablet PO PRN (00:20)
[2021-12-06] MEDS ORDERED: mag hydrox/Alum hydrox/simeth 30ml oral suspension PO PRN (00:20)
[2021-12-06] MEDS ORDERED: magnesium hydroxide 30ml (MOM) UD suspension PO PRN (00:20)
[2021-12-06] MEDS: normal saline 1000ml 1,000 ML IV SCH ×2 (00:30→20:30)
--- NOTE | 2021-12-06 02:04 | NUR ---
paged hospitalist regarding critical troponin of 336.
--- NOTE | 2021-12-06 03:21 | NUR ---
Patient in room ED 4. I have received report from Shirt Trimmer and had the opportunity to ask questions and will assume patient care upon arrival to the floor. Addendum: 12/06/21 at 0322 by Adelina Win RN Amended: Links added.
[2021-12-06 03:30] VITALS: BP 109/67
--- NOTE | 2021-12-06 03:40 | NUR ---
settled pt into bed skin check done requested a bed mchugh and unable to void at this time. pt confused attempt to reorient and drowsy but was impulsive and very weak. tabs alarm put on pt and pure wick as well. bottom red but blanchable had poise pants on and removed. iv 20 in right wrist area infusing without redness or swelling at the site.
[2021-12-06 06:00] VITALS: BP 105/72
--- NOTE | 2021-12-06 06:38 | NUR ---
Problems reprioritized. Patient report given, questions answered & plan of care reviewed with NEERAJ MEEKS. Addendum: 12/06/21 at 0639 by Adelina Win RN Amended: Links added.
[2021-12-06] MEDS: docusate sod 100mg capsule PO SCH ×2 (08:05→19:39)
[2021-12-06 09:09] LABS: BASOPHILS % (AUTO) 0.1 % (0-1); EOSINOPHILS % (AUTO) 0.1 % (0-6); HEMATOCRIT 39.3 % (35.0-45.0); HEMOGLOBIN 12.3 g/dl (12.0-16.0); LYMPHOCYTES # (AUTO) 0.8 X10'3 (1.1-4.8); LYMPHOCYTES % (AUTO) 8.9 % (21-51); MEAN CORPUSCULAR HEMOGLOBIN 25.9 PG (27.0-31.0); MEAN CORPUSCULAR HGB CONC 31.3 g/dL (33.0-36.5); MEAN CORPUSCULAR VOLUME 82.5 FL (78-98); MEAN PLATELET VOLUME 8.5 FL (7.4-10.4); MONOCYTES % (AUTO) 10.8 % (2-12); NEUTROPHILS # (AUTO) 7.4 X10'3 (1.8-7.7); NEUTROPHILS % (AUTO) 80.1 % (42-75); PLATELET COUNT 245 X10'3 (140-440); RED BLOOD COUNT 4.76 X10'6 (4.20-5.60); RED CELL DISTRIBUTION WIDTH 18.8 % (11.5-14.5); WHITE BLOOD COUNT 9.2 X10'3 (4.5-11.0)
[2021-12-06 09:38] LABS: ALBUMIN 3.3 G/DL (3.4-5.0); ALBUMIN/GLOBULIN RATIO 1.1 (1.1-1.5); ALKALINE PHOSPHATASE 102 IU/L (46-116); ASPARTATE AMINO TRANSFERASE 882 U/L (10-37); BILIRUBIN,TOTAL 1.4 MG/DL (0.1-1.0); BLOOD UREA NITROGEN 81 MG/DL (7-18); BUN/CREATININE RATIO 49.4 (6.6-38.0); CALCIUM 9.2 MG/DL (8.5-10.1); CREATININE 1.64 MG/DL (0.40-0.90); GLUCOSE 88 MG/DL (70-104); TOTAL PROTEIN 6.2 G/DL (6.4-8.2); eGFR 29 ML/MIN
[2021-12-06 09:53] LABS: ANION GAP 12 (8-16); CHLORIDE 94 MMOL/L (99-107); POTASSIUM 3.6 MMOL/L (3.5-5.1); SODIUM 130 MMOL/L (135-145)
[2021-12-06 09:54] LABS: ALANINE AMINOTRANSFERASE 1173 U/L (12-78)
[2021-12-06 11:00] VITALS: BP 111/71
--- NOTE | 2021-12-06 11:01 | NUR ---
Malnutrition consult: Pt unsure of wt loss though also reports 2-13 lb wt loss with decreased appetite per malnutrition risk screen with RN. Per H&P pt is a poor historian and was BIB daughter d/t persistent weakness and N/V for about 5-6 days. Pt with recent scaled wt h/o 54 kg taken 10/05, current documented wt is 53.64 kg. Wt appears stable. Pt on a full liquid diet and documented to have refused first meal. Noted pt ate fairly well for age at previous admit in September with no texture modification. Pt with no documented significant decrease in muscle strength or edema and per ED report pt appears well developed well nourished. Pt currently lacks a minimum of two criteria for malnutrition. Noted pt with a low Tommy of 12. Per EMR pt with no edema and skin is intact. Will continue to follow closely and further monitor qualifying criteria for malnutrition. Addendum: 12/06/21 at [address] Amended: Links added.
--- NOTE | 2021-12-06 11:05 | NUR ---
PAGER ID: [phone] MESSAGE: Re Lashay Murphy [id number] please call re CT results given to me by family Thank You, Pramod PICKARD
[2021-12-06 15:00] VITALS: BP 122/62
[2021-12-06 16:58] LABS: ABG BASE EXCESS -1.1 mmol/L (-2.0-2.0); ABG HCO3 21.9 mmol/L (22.0-26.0); ABG OXYGEN SATURATION 97.1 % (94-97); ABG PCO2 (T) 31.7 mmHg (32.0-45.0); ABG PO2 (T) 90.4 mmHg (75.0-100.0); ALLEN'S TEST POSITIVE; FCOHb 0.5 % (0.0-3.9); FLOW 3 L/min; FMetHb 0.4 % (0.0-1.5); FO2Hb 96.2 % (94-97); PATIENT TEMPERATURE 37.1; TOTAL HEMOGLOBIN 13.1 G/dl (12.0-16.0)
[2021-12-06 18:00] VITALS: BP 121/68
[2021-12-06] MEDS: ondansetron/PF 4mg/2ml inj IV PRN (19:51)
[2021-12-06] MEDS: morphine 2 MG/ML inj. syringe IV PRN (19:52)
[2021-12-06 22:00] VITALS: BP 120/72
[2021-12-07 02:00] VITALS: BP 133/80
[2021-12-07] MEDS: morphine 2 MG/ML inj. syringe IV PRN ×4 (02:36→22:39)
[2021-12-07 06:00] VITALS: BP 124/73
--- NOTE | 2021-12-07 06:49 | NUR ---
Patient in room PCU 3024. I have received report from Kath PICKARD and had the opportunity to ask questions and assume patient care. Patient in bed awake, chart clerk obaiting labs. 2.5L NC on, bed low rails up x3
[2021-12-07 07:34] LABS: BASOPHILS % (AUTO) 0.2 % (0-1); EOSINOPHILS # (AUTO) 0.1 X10'3 (0-0.9); EOSINOPHILS % (AUTO) 0.7 % (0-6); LYMPHOCYTES # (AUTO) 0.7 X10'3 (1.1-4.8); MEAN CORPUSCULAR HGB CONC 32.3 g/dL (33.0-36.5); MEAN CORPUSCULAR VOLUME 80.3 FL (78-98); MEAN PLATELET VOLUME 8.4 FL (7.4-10.4); MONOCYTES # (AUTO) 1.1 X10'3 (0-0.9); MONOCYTES % (AUTO) 12.3 % (2-12); NEUTROPHILS # (AUTO) 7.2 X10'3 (1.8-7.7); NEUTROPHILS % (AUTO) 78.8 % (42-75); PLATELET COUNT 241 X10'3 (140-440); RED BLOOD COUNT 4.61 X10'6 (4.20-5.60); RED CELL DISTRIBUTION WIDTH 18.2 % (11.5-14.5); WHITE BLOOD COUNT 9.2 X10'3 (4.5-11.0)
[2021-12-07 07:39] LABS: ALANINE AMINOTRANSFERASE 870 U/L (12-78); ALBUMIN 3.2 G/DL (3.4-5.0); ALBUMIN/GLOBULIN RATIO 1.1 (1.1-1.5); ALKALINE PHOSPHATASE 106 IU/L (46-116); ANION GAP 13 (8-16); ASPARTATE AMINO TRANSFERASE 445 U/L (10-37); BILIRUBIN,TOTAL 1.6 MG/DL (0.1-1.0); BLOOD UREA NITROGEN 60 MG/DL (7-18); BUN/CREATININE RATIO 46.9 (6.6-38.0); CALCIUM 8.6 MG/DL (8.5-10.1); CHLORIDE 96 MMOL/L (99-107); CREATININE 1.28 MG/DL (0.40-0.90); GLUCOSE 98 MG/DL (70-104); SODIUM 132 MMOL/L (135-145); TOTAL CARBON DIOXIDE 23.4 MMOL/L (24-32); eGFR 39 ML/MIN
[2021-12-07 07:49] LABS: POTASSIUM 2.4 MMOL/L (3.5-5.1)
--- NOTE | 2021-12-07 07:49 | NUR ---
CRITICAL LAB VALUE REPORTED TO PRIMARY RN K 2.4
--- NOTE | 2021-12-07 07:58 | NUR ---
PAGER ID: [phone] MESSAGE: ZAINA PALACIOS [id number]. CRITICAL POTASSIUM 2.4 NO REPLACEMENT PROTOCOL/MEDS ORDERED THANK YOU, JEANNA PICKARD
[2021-12-07] MEDS ORDERED: albuterol 2.5 MG/3 ML nebule NEB PRN (08:05)
[2021-12-07] MEDS ORDERED: potassium CL 10mEq/100ml bag 100 ML IV PRN (08:05)
[2021-12-07] MEDS ORDERED: HYDROcodone/acetaminophen 10/325mg tab PO PRN (08:05)
[2021-12-07] MEDS ORDERED: POTASSIUM BICARB 20meq eff tab 20 MEQ TABLET.EFF PO PRN (08:05)
[2021-12-07] MEDS ORDERED: magnesium 2GM in 50ml NS 50 ML IV PRN (08:05)
[2021-12-07] MEDS ORDERED: non-formulary drug (Alendronate Sodium 1 TAB) PO SCH (08:05)
[2021-12-07] MEDS ORDERED: magnesium 4gm in 100ml NS 100 ML IV PRN (08:05)
[2021-12-07] MEDS: POTASSIUM BICARB 20meq eff tab 20 MEQ TABLET.EFF PO PRN ×2 (08:35→16:58)
[2021-12-07] MEDS: metoprolol succinate 25mg (24-HOUR) SR. Tablet PO SCH (08:35)
[2021-12-07] MEDS: docusate sod 100mg capsule PO SCH ×2 (08:36→20:01)
[2021-12-07] MEDS ORDERED: LEVOTHYROXINE SODIUM 137 MCG PO SCH (09:18)
[2021-12-07] MEDS ORDERED: levoTHYROXINE 112mcg tablet PO SCH (09:40)
[2021-12-07] MEDS ORDERED: levoTHYROXINE 25mcg tablet PO ONE (09:45)
[2021-12-07] MEDS: levoTHYROXINE 25mcg tablet PO SCH (10:11)
[2021-12-07] MEDS ORDERED: levoTHYROXINE 112mcg tablet PO ONE (10:22)
[2021-12-07 11:21] VITALS: BP 119/72
[2021-12-07 15:00] VITALS: BP 114/72
[2021-12-07] MEDS ORDERED: albuterol 2.5 MG/3 ML nebule NEB SCH (15:00)
[2021-12-07] MEDS ORDERED: ipratropium 0.5 MG/2.5ML nebule IH SCH (15:00)
[2021-12-07] MEDS: ipratropium/albuterol 3ml nebule NEB SCH ×2 (15:06→21:30)
[2021-12-07] MEDS: normal saline 1000ml 1,000 ML IV SCH (16:30)
[2021-12-07 18:00] VITALS: BP 106/77
[2021-12-07] MEDS ORDERED: non-formulary drug (Vit C/E/Zn/Coppr/Lutein/Zeaxan (Preservision Areds 2 Softgel) 1 CAP) PO SCH (20:00)
[2021-12-07] MEDS: K and/or MAG REPLACEMENT MC SCH (20:00)
[2021-12-07] MEDS: potassium Cl 20 mEq SR tablet PO SCH (20:01)
[2021-12-07] MEDS ORDERED: warfarin 2.5mg tablet PO ONE (21:00)
[2021-12-07] MEDS: ondansetron/PF 4mg/2ml inj IV PRN (21:25)
[2021-12-07] MEDS: budesonide 0.5mg/2ml UD nebule IH SCH (21:30)
[2021-12-07 22:00] VITALS: BP 115/79
[2021-12-08 02:00] VITALS: BP 105/64
[2021-12-08] MEDS: ipratropium/albuterol 3ml nebule NEB SCH ×3 (02:35→14:22)
--- NOTE | 2021-12-08 06:30 | NUR ---
Patient in room PCU 3024. I have received report from Kath PICKARD and had the opportunity to ask questions and assume patient care.
[2021-12-08 06:38] LABS: EOSINOPHILS # (AUTO) 0.1 X10'3 (0-0.9); HEMOGLOBIN 13.1 g/dl (12.0-16.0); LYMPHOCYTES # (AUTO) 0.9 X10'3 (1.1-4.8); MEAN PLATELET VOLUME 8.2 FL (7.4-10.4); NEUTROPHILS # (AUTO) 6.5 X10'3 (1.8-7.7); WHITE BLOOD COUNT 8.5 X10'3 (4.5-11.0)
[2021-12-08 06:40] LABS: BASOPHILS % (AUTO) 0.4 % (0-1); EOSINOPHILS % (AUTO) 0.6 % (0-6); HEMATOCRIT 41.6 % (35.0-45.0); LYMPHOCYTES % (AUTO) 10.5 % (21-51); MEAN CORPUSCULAR HEMOGLOBIN 25.3 PG (27.0-31.0); MEAN CORPUSCULAR HGB CONC 31.4 g/dL (33.0-36.5); MEAN CORPUSCULAR VOLUME 80.4 FL (78-98); MONOCYTES % (AUTO) 12.2 % (2-12); NEUTROPHILS % (AUTO) 76.3 % (42-75); PLATELET COUNT 234 X10'3 (140-440); RED BLOOD COUNT 5.17 X10'6 (4.20-5.60); RED CELL DISTRIBUTION WIDTH 18.7 % (11.5-14.5)
[2021-12-08 07:00] VITALS: BP 111/59
[2021-12-08 07:04] LABS: ALANINE AMINOTRANSFERASE 774 U/L (12-78); ALBUMIN 3.4 G/DL (3.4-5.0); ALBUMIN/GLOBULIN RATIO 1.1 (1.1-1.5); ALKALINE PHOSPHATASE 116 IU/L (46-116); ANION GAP 11 (8-16); ASPARTATE AMINO TRANSFERASE 315 U/L (10-37); BILIRUBIN,TOTAL 1.8 MG/DL (0.1-1.0); BLOOD UREA NITROGEN 56 MG/DL (7-18); BUN/CREATININE RATIO 39.7 (6.6-38.0); CALCIUM 8.6 MG/DL (8.5-10.1); CHLORIDE 95 MMOL/L (99-107); CREATININE 1.41 MG/DL (0.40-0.90); GLUCOSE 107 MG/DL (70-104); POTASSIUM 4.9 MMOL/L (3.5-5.1); SODIUM 129 MMOL/L (135-145); TOTAL CARBON DIOXIDE 22.9 MMOL/L (24-32); TOTAL PROTEIN 6.5 G/DL (6.4-8.2); eGFR 35 ML/MIN
[2021-12-08 07:06] LABS: ANISOCYTOSIS 2+; BURR CELLS FEW; ELLIPTOCYTES 1+; LARGE PLATELETS FEW; NUCLEATED RED BLOOD CELLS 2 /100WBC (0-0); PLATELET ESTIMATE NORMAL; TOTAL CELLS COUNTED 100
[2021-12-08 07:07] LABS: ACANTHOCYTES FEW; SCHISTOCYTES FEW
[2021-12-08] MEDS: K and/or MAG REPLACEMENT MC SCH ×2 (07:22→18:44)
[2021-12-08] MEDS: potassium Cl 20 mEq SR tablet PO SCH (07:25)
--- NOTE | 2021-12-08 07:26 | NUR ---
Holding scheduled K-dur tablet while clarifying with the doctor. Patient's K is 4.9
[2021-12-08] MEDS: metoprolol succinate 25mg (24-HOUR) SR. Tablet PO SCH (07:37)
[2021-12-08] MEDS: levoTHYROXINE 25mcg tablet PO SCH (07:37)
[2021-12-08] MEDS: docusate sod 100mg capsule PO SCH ×2 (07:37→07:48)
[2021-12-08] MEDS ORDERED: LIDOcaine 5% patch TP SCH (08:00)
--- NOTE | 2021-12-08 09:21 | NUR ---
Initial: Pt admit for acute generalized weakness, encephalopathy, transaminitis, and A.fib with RVR. Pt initially on a full liquid diet, documented with 25% PO intake. Diet has recently been advanced to heart healthy and pt with 25% PO intake of first meal down to 0% PO intake of second meal. Recommend liberalizing to regular diet in view of poor PO intake and geriatric age. Pt would benefit from ONS to assist with meeting estimated nutrient needs, to be sent pending physician approval in EMR. LBM 12/06. Pt has been receiving routine bowel care though documented to have refused it this morning. Will continue to follow closely and monitor need for further nutrition intervention. Recommendations: 1) Liberalize to regular diet in view of geriatric age and poor PO intake 2) Ensure Enlive TIDWM, pending physician approval in EMR 3) Routine bowel care 4) Scaled weight this admit; subsequent weekly scaled weights Addendum: 12/08/21 at [address] Amended: Links added.
[2021-12-08] MEDS: budesonide 0.5mg/2ml UD nebule IH SCH ×2 (09:22→19:44)
[2021-12-08 11:00] VITALS: BP 122/74
[2021-12-08] MEDS: ondansetron/PF 4mg/2ml inj IV PRN (11:10)
[2021-12-08] MEDS: morphine 2 MG/ML inj. syringe IV PRN ×2 (11:11→16:33)
[2021-12-08] MEDS: normal saline 1000ml 1,000 ML IV SCH (11:47)
[2021-12-08] MEDS ORDERED: lactose-reduced food (Ensure Enlive) - 237ml bottle PO SCH (13:00)
[2021-12-08] MEDS ORDERED: metoprolol tartrate 50mg tablet PO ONE (14:05)
[2021-12-08 15:00] VITALS: BP 114/66
--- NOTE | 2021-12-08 15:09 | NUR ---
Pt family asking about talking to case management about options for hospice.
[2021-12-08] MEDS ORDERED: LORazepam 2 mg/ml vial IV ONE (18:00)
--- NOTE | 2021-12-08 18:05 | NUR ---
pAGED FOR cxr
[2021-12-08] MEDS ORDERED: morphine 10mg/0.5ml (conc. morphine) oral syringe PO PRN (18:25)
[2021-12-08] MEDS ORDERED: hyoscyamine 0.125mg TAB.SUBL SL PRN (18:25)
[2021-12-08] MEDS ORDERED: LORazepam 0.5 MG tablet PO PRN (18:25)
[2021-12-08] MEDS ORDERED: LORazepam 2 mg/ml vial IV PRN (18:25)
--- NOTE | 2021-12-08 18:30 | NUR ---
Problems reprioritized. Patient report given, questions answered & plan of care reviewed with Kath PICKARD.
--- NOTE | 2021-12-08 18:45 | NUR ---
Rounded on patient at 1745. Pt was struggling to get out of bed, completely confused. Told the patient to stay in bed. Patient was pale with bluish tinted lips. Checked O2, and could not get a consistent read. The read received was in the 70s. Increased the nasal cannula, to oxy mask, then to non-rebreather. O2 on 15L was 85%. Patient hated the non-rebreather and kept ripping it off. Paged Rt to come and assess. Paged MD about oxygen sats. MD rounded on the patient and it was determined to change to comfort measures with both daughters present. verbally ordered a one time IV Ativan to help with her anxiety. Patient change to nasal cannula at 4L for comfort and tele box and oxy monitored removed from the patient per Dr. Romero order.
--- NOTE | 2021-12-08 20:59 | NUR ---
Was asked by family to check patient around 1917. Patient was without respirations or pulse. No pupillary response to light.Pt is DNR, comfort care. Confirmed assessment with credit charge authorizer Teresa. time of 1919. Per family request, [facility] was called, information given, stated he will be calling back with pharmacy picking technician arrangements. Dr. Parsons informed. Family remains at bedside. confirmation of tele at this time, pt. previously off tele per family request.
[2021-12-08] MEDS ORDERED: warfarin 2.5mg tablet PO ONE (21:00)
--- NOTE | 2021-12-08 23:40 | NUR ---
released to [facility]
[2021-12-09 10:56] LABS: HBSAG SCREEN Negative (Negative); HEP A AB, IGM Negative (Negative)
== END 2021-12-08 19:20 | DRG 682 ==
LOC: ER 16:29 → UNDOADMIN 12-06 00:21 → ED HOLD 12-06 00:21 → PCU 3S 12-06 03:30
PROVIDERS: ADMIT Internal Medicine; ATTEND Family Medicine
DX: N17.0 Acute kidney failure with tubular necrosis (principal); J96.20 Acute and chronic respiratory failure, unspecified whether with hypoxia or hypercapnia; I21.A1 Myocardial infarction type 2; G93.41 Metabolic encephalopathy; E87.1 Hypo-osmolality and hyponatremia; D68.59 Other primary thrombophilia; I11.0 Hypertensive heart disease with heart failure; Z66 Do not resuscitate; R62.7 Adult failure to thrive; E11.9 Type 2 diabetes mellitus without complications; I25.10 Atherosclerotic heart disease of native coronary artery without angina pectoris; I48.0 Paroxysmal atrial fibrillation; I50.9 Heart failure, unspecified; J44.9 Chronic obstructive pulmonary disease, unspecified; E03.9 Hypothyroidism, unspecified; E78.5 Hyperlipidemia, unspecified; E86.0 Dehydration; M81.0 Age-related osteoporosis without current pathological fracture; Z51.5 Encounter for palliative care; Z79.01 Long term (current) use of anticoagulants; Z90.710 Acquired absence of both cervix and uterus; Z90.49 Acquired absence of other specified parts of digestive tract; Z68.23 Body mass index [BMI] 23.0-23.9, adult
CPT/HCPCS: 36415; 36600; 71045; 74018; 76700; 80053; 80074; 80329; 81003; 82803; 83690; 83735; 83880; 84132; 84443; 84484; 85007; 85018; 85025; 85610; 85730; 87081; 93005; 94640; 94760; 97161; 99285; G0378; J2060; J2270; J2405; J3490; J7030